=== PATIENT | female | born 1955 | race Caucasian/White ===

== ENCOUNTER 2023-11-25 10:03 | Day surgery (SDC) | payer OTHER ==
[~2023-11-25] VITALS: Ht 152.4 cm; Wt 71.7 kg
[2023-11-25] MEDS ORDERED: fentaNYL citrate 0.05 MG/ML VIAL ONE (12:40)
[2023-11-25] MEDS ORDERED: MIDAZOLAM 2 MG/2 ML VIAL ONE (12:41)
[2023-11-25] MEDS: MIDAZOLAM 2 MG/2 ML VIAL IVP ONE (13:11)
[2023-11-25] MEDS: fentaNYL citrate 0.05 MG/ML VIAL IVP ONE (13:12)
== END 2023-11-25 15:18 | disposition home or self-care (01) ==
LOC: MDS 10:03 → MMU 10:16 → MDS 15:18
PROVIDERS: ATTEND Internal Medicine Gastroenterology
DX: R13.10 Dysphagia, unspecified (principal); K44.9 Diaphragmatic hernia without obstruction or gangrene; R07.9 Chest pain, unspecified; J45.909 Unspecified asthma, uncomplicated; M19.90 Unspecified osteoarthritis, unspecified site; Z79.899 Other long term (current) drug therapy; Z90.49 Acquired absence of other specified parts of digestive tract
CPT/HCPCS: 43239; 88305; J2250; J3010